=== PATIENT | female | born 1965 | race Caucasian/White ===

== ENCOUNTER 2016-12-04 05:59 | Day surgery (SDC) | payer OTHER ==
[~2016-12-04 05:59] MED LIST: LIDOCAINE W/ SODIUM BICARB 0.5 ML SYR ONE; Lactated Ringers 1,000 ML PRIMARY IV ONE; ceFAZolin Inj 2gm (Premix) 50 ML IV ONE
[2016-12-04] MEDS ORDERED: Lidocaine Inj 1% 0 ML ONE (06:49)
[2016-12-04] MEDS ORDERED: BUPIVACAINE 0.5% W/ EPI - 10 ML VIAL ONE (06:49)
[2016-12-04] MEDS ORDERED: LIDOCAINE 2%/ EPI 1:200,000 - 20 ML VIAL ONE (07:13)
[2016-12-04] MEDS ORDERED: MIDAZOLAM 5 MG/1 ML ONE (07:13)
[2016-12-04] MEDS ORDERED: ROPIVACAINE HCL 7.5 MG/1 ML - 20 ML ONE (07:13)
[2016-12-04] MEDS ORDERED: DEXAMETHASONE PF 10 MG/1 ML VIAL ONE (07:14)
[2016-12-04] MEDS ORDERED: fentaNYL Inj 100 MCG/2 ML VIAL ONE (07:14)
[2016-12-04] MEDS ORDERED: LIDOCAINE 2% 20 MG/ML - 20 ML VIAL ONE (07:59)
--- NOTE | 2016-12-04 08:21 | CRNA.PROCE ---
Nerve Block Documentation - - Safety Measures: Time Out Taken, Site Verified - - Type of Nerve Block Used: Right Popliteal Fossa Block (As primary anesthetic for Neuroma excision Right foot, 3rd interspace. Pt prefers liberal sedation.) Position for Nerve Block: Prone Moniters Used During Block: EKG, SPO2, NIBP Oxygen Sumpplented: Yes Sedation Used - Enter Amount in Comment Field: Midazolam (mg): Yes (2.5), Fentanyl (mcg): Yes (50) Skin Prep Used: ChloroPrep (Twice) Technique: Nerve Stimulator Nerve Block Needle Used: 80 mm ProBlk II Stimulation Hz: 1 Stimulation Staring mA: 1.8 Stimulation Ending mA: 0.6 Local Anesthetic - Enter Amt in Comment Field: 2 % Xylocaine with Epinephrine 1: 200,000 (mL): Yes (10 ml in 3 ml increments), Other Anesthetic: Yes (0.75 20 ml in 3ml increments) Additives to Nerve Blocks: Dexamethasone (mL): Yes (10 mg)
[2016-12-04] MEDS ORDERED: NORMAL SALINE 10 ML SYRINGE FLUSH IVP PRN (09:43)
[2016-12-04 11:06] VITALS: RESP 12
[2016-12-04 11:10] VITALS: TEMP 97
--- NOTE | 2016-12-04 11:47 | OPS CRUTCH ---
Referral Reason: Gait Training O: Patient was instructed in the use of four point walker and scooter both on level surfaces and on stairs. P: No further therapy is indicated at this time. MTDD
--- NOTE | 2016-12-04 15:40 | GEN.OPNOTE ---
Operative Report Surgeon: Dr. Tavon Hernandez [employer] Operator: Other (Dr. 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 Postoperative Diagnosis: same Procedure: Excision of neuroma third interspace right foot. Estimated Blood Loss (mL): 5 Complications: none Indications for the Procedure: Patient has failed conservative treatment including cortisone injections, wide shoe gear, soft shoe gear, Lyrica, and gabapentin. Description of Procedure: Under mild sedation the patient will the operating room placed on operating table in supine position. A well-padded pneumatic ankle tourniquet was placed about the Rt ankle. He was then prepped scrubbed and draped in the usual aseptic manner. The Rt foot was then exsanguinated with an Esmarch. The ankle tourniquet was inflated. And attention was directed to the plantar sulcus of the foot inferior to the 3rd interspace a transvere incision rocks 0.3 cm in length was made the incision was deepened using sharp and blunt dissection with care being taken to identify and retract all vital neurovascular structures. the incision was carried down to the level of the third interspace where the ascending neuroma tissue was visualized. There was noted to be two neuroma roots there is also another small cystic like mass with some neuroma tissue as well under the third metatarsal head, the distal branches of the neuromas were transected and dissection was carried far proximal as possible and transected. The three neuroma masses were then sent to pathology. All bleeders were cauterized. Subcutaneous tissue was reapproximated and coapted with 4-0 Vicryl. Skin was reapproximated and coapted with 3-0 nylon in a running interdermal suture technique and reinforced with simple interrupted suture technique. The ankle tourniquet was deflated prompt hyperemic response returned to the toes. A sterile dressing was applied consisting of Xeroform gauze, 4 x 4 gauze, Kerlix, Coban, The patient tolerated the procedure well.
== END 2016-12-04 10:30 | disposition home or self-care (01) ==
LOC: SDSC 05:59
PROVIDERS: ATTEND Podiatrist Foot & Ankle Surgery
DX: G57.61 Lesion of plantar nerve, right lower limb (principal)
CPT/HCPCS: 28080; 97116; J0690; J2704; J3010; J1100; J2001; J2250; J7120